=== PATIENT | male | born 1990 | race Caucasian/White ===

== ENCOUNTER 2019-06-02 01:51 | Emergency (ER) | payer OTHER ==
[~2019-06-02] VITALS: Ht 175.3 cm; Wt 72.7 kg
[2019-06-02] MEDS ORDERED: NS 1,000 ML IV ONE (03:30)
[2019-06-02] MEDS ORDERED: MORPHINE 2 MG/ML 1ML VIAL (J2270) IV ONE (03:30)
--- NOTE | 2019-06-02 04:10 | REPVR ---
PROCEDURE INFORMATION: Exam: CT Cervical Spine Without Contrast Exam date and time: 06/02/2019 3:17 AM Age: 28 years old Clinical indication: Neck pain; Additional info: [facility] TECHNIQUE: Imaging protocol: Computed tomography images of the cervical spine without contrast. Radiation optimization: All CT scans at this facility use at least one of these dose optimization techniques: automated exposure control; mA and/or kV adjustment per patient size (includes targeted exams where dose is matched to clinical indication); or iterative reconstruction. COMPARISON: No relevant prior studies available. FINDINGS: Vertebrae: No acute fracture. Normal alignment. Discs/Spinal canal/Neural foramina: No disc herniations. No spinal canal stenosis. No neural foraminal narrowing. Soft tissues: Unremarkable. Sinuses: Bilateral maxillary sinus mucosal thickening. Lungs: Lung apices are normal. IMPRESSION: 1. Right maxillary retention cyst. 2. Negative CT cervical spine. No fracture or subluxation is evident and no spinal or foraminal stenosis. Electronically signed by: Adis Avila On 06/02/2019 04:10:26 AM
[2019-06-02 04:50] VITALS: BP 118/63
== END 2019-06-02 05:17 | disposition home or self-care (01) ==
LOC: M ED 01:51
DX: S16.1XXA Strain of muscle, fascia and tendon at neck level, initial encounter (principal); W00.0XXA Fall on same level due to ice and snow, initial encounter; Y92.138 Other place on military base as the place of occurrence of the external cause; Y99.1 Military activity; E86.0 Dehydration; F17.218 Nicotine dependence, cigarettes, with other nicotine-induced disorders; Y93.01 Activity, walking, marching and hiking
CPT/HCPCS: 72125; 96361; 96374; 99284; J2270